=== PATIENT | male | born 1970 | race Caucasian/White ===

== ENCOUNTER 2024-12-31 04:46 | Emergency (ER) | payer BC, SELFPAY ==
[2024-12-31 04:48] VITALS: BP 118/90; PULSE 116; RESP 19; TEMP 36.8; O2SAT 92
[2024-12-31 04:50] VITALS: BMI 21.9
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
[2024-12-31 05:13] LABS: Basophils # (Auto) 0.0 Thou/mm3 (0.0-0.2); Basophils % (Auto) 1 % (0-2.5); Eosinophils # (Auto) 0.1 Thou/mm3 (0.0-0.5); Eosinophils % (Auto) 1 % (0-10); Hematocrit 45.1 % (41.0-53.0); Hemoglobin 15.4 g/dL (13.5-16.0); Immature Granulocytes Auto 0.02 Thou/mm3 (0.00-0.00); Lymphocytes # (Auto) 4.4 Thou/mm3 (1.0-4.8); Lymphocytes % (Auto) 51 % (10-50); Mean Corpuscular HGB Conc 34.1 g/dl (31.0-37.0); Mean Corpuscular Hemoglobin 34.1 pg (25.0-35.0); Mean Corpuscular Volume 100 fL (80-100); Monocytes # (Auto) 0.7 Thou/mm3 (0.0-0.8); Monocytes % (Auto) 8 % (0-12); Neutrophils # (Auto) 3.3 Thou/mm3 (1.8-7.7); Neutrophils % (Auto) 39 % (37-80); Nucleated Red Blood Cell # 0.00 Thou/mm3 (0.00-0.00); Nucleated Red Blood Cell % 0 /100 WBC (0); Platelet Count 136 Thou/mm3 (140-440); RDW Standard Deviation 53.0 fL (35.1-43.9); Red Blood Count 4.51 Miln/mm3 (4.50-5.90); White Blood Count 8.5 Thou/mm3 (3.8-10.6)
[2024-12-31 05:31] LABS: INR 0.9 (0.9-1.3); Partial Thromboplastin Time 28.4 Seconds (22.0-36.0); Prothrombin Time 10.2 Seconds (9.0-12.2)
[2024-12-31 05:42] LABS: Acetaminophen < 2.0 mcg/mL (10.0-20.0); Alanine Aminotransferase 21 U/L (10-49); Albumin, Serum 4.2 gm/dL (3.5-5.0); Albumin/Globulin Ratio 1.2 (1.2-2.2); Alkaline Phosphatase 239 U/L (46-116); Amylase 149 U/L (30-118); Anion Gap 15 (7-16); Aspartate Amino Transferase 61 U/L (0-34); BUN/Creatinine Ratio 9 Ratio (12-20); Bilirubin,Direct 0.2 mg/dL (0.0-0.3); Bilirubin,Total 0.5 mg/dL (0.3-1.2); Blood Urea Nitrogen 8 mg/dL (9-23); Calcium 8.9 mg/dL (8.3-10.6); Calcium (Corrected) 8.9 mg/dL (8.5-10.1); Carbon Dioxide 22.5 mMol/L (20.0-31.0); Chloride 101 mMol/L (98-107); Creatinine (Component) 0.9 mg/dL (0.6-1.3); Estimated Creatinine Clearance 114.4 mL/min (>60); Free T4 (Free Thyroxine) 1.17 ng/dL (0.89-1.76); Globulin 3.5 gm/dL (2.3-3.5); Glucose 112 mg/dL (74-106); Lipase 70 U/L (12-53); Magnesium 2.1 mg/dL (1.6-2.6); Osmolality,Calculated 274 (275-295); Potassium 3.6 mMol/L (3.4-5.1); Salicylate < 3.0 mg/dL; Sodium 138 mMol/L (136-145); Thyroid Stimulating Hormone 2.31 uIU/mL (0.55-4.78); Total Protein 7.7 gm/dL (5.7-8.2); eGFR > 60 See Note
[2024-12-31 05:46] LABS: Alcohol, Blood Medical 422.6 mg/dL (0-10.0)
[2024-12-31 06:14] VITALS: BP 128/88; PULSE 92; RESP 17; TEMP 36.5; O2SAT 90
[2024-12-31] MEDS: DIPHTH,PERTUSS(ACELL),TET VAC 0.5 ML SYR- ADULT IMi (06:41)
--- NOTE | 2024-12-31 06:54 | PD.EDADDENDU ---
Emergency Room Addendum Addendum Narrative: 0600: Care assumed from Dr. Guthrie, the previous shift emergency physician. Past medical, surgical, social and family history reviewed. Vitals and home medications reviewed. I will assume the care of the patient at this time, pending labs for medical clearance for mental health evaluation. Please refer to the emergency department record for history and examination from initial visit.?The following addendum documentation note is intended to reflect any pending information, findings, or radiology results not included in the patient?s initial chart. Blood alcohol 422.6. Urine drug screen negative. Through ED course, patient has remained stable. The patient had access and provided food and water. 1800: Patient signed out to Dr. Guthrie pending medical clearance for mental health evaluation.
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
[2024-12-31 07:53] VITALS: BP 145/84; PULSE 88; RESP 16; TEMP 37; O2SAT 97
[2024-12-31] MEDS: BACITRACIN OINT 1 GM PACKET TOP (08:35)
[2024-12-31 11:08] VITALS: BP 122/74; PULSE 93; RESP 18; TEMP 36.3; O2SAT 96
--- NOTE | 2024-12-31 13:26 | PC.NURSE ---
SPOKE TO JESSE, PT'S MOTHER, AND UPDATED REGARDING PT'S POC WITH PT'S CONSENT.
[2024-12-31 13:35] VITALS: BP 144/87; PULSE 110; RESP 18; TEMP 36.7; O2SAT 96
[2024-12-31 15:42] VITALS: BP 137/76; PULSE 84; RESP 18; TEMP 36.6; O2SAT 96
[2024-12-31 16:46] LABS: Amphetamine/Methamp Scrn,U Negative (Negative); Barbiturate Screen,Urine Negative (Negative); Benzodiazepines Screen,Urine Negative (Negative); Benzoylecgonine Screen, Ur Negative (Negative); Fentanyl Screen,Urine Negative (Negative); Opiate Screen,Urine Negative (Negative); THC Screen,Urine Negative (Negative)
--- NOTE | 2024-12-31 18:11 | PD.EDADDENDU ---
Emergency Room Addendum <Mer Russo - Last Filed: 01/01/25 01:20> Addendum Narrative: I took over the care from previous shift physician, Dr. Kenyon, at 6 PM on 12/31/24. See previous notes for complete H & P and ED course. Pending psychiatric placement. The patient remained stable during my watch. At 6 AM on 01/01/2025, the care of the patient was transferred to Dr. Kenyon. Jalil Guthrie MD <Jalil Guthrie MD - Last Filed: 01/01/25 02:02> Addendum Narrative: I took over the care from previous shift physician, Dr. Kenyon, at 6 PM on 12/31/24. See previous notes for complete H & P and ED course. Pending psychiatric placement. At 6 AM on 01/01/2025, the care of the patient was transferred to Dr. Kenyon. The patient remained stable during my watch. Jalil Guthrie MD
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
[2025-01-01] VITALS (7 sets, daily range): BP systolic 128–169; BP diastolic 84–103; PULSE 90–101; RESP 17–18; TEMP 36.9–37.1; O2SAT 97–99
--- NOTE | 2025-01-01 06:30 | EDNOTE_ITS ---
Emergency Room Addendum Addendum Narrative: 0600: Care assumed from Dr. Guthrie, the previous shift emergency physician. Past medical, surgical, social and family history reviewed. Vitals and home medications reviewed. I will assume the care of the patient at this time, pending LPS facility placement. Please refer to the emergency department record for history and examination from initial visit.?The following addendum documentation note is intended to reflect any pending information, findings, or radiology results not included in the patient?s initial chart. Made aware by RN that the patients blood pressure is 154/100. States the patient takes 10mg Lisinopril at home and last took it 5 days ago. Lisinopril has been ordered. Patient has been accepted at [facility] by Dr. Zhang. Patients blood pressure remains elevated after 10mg Lisinopril, 169/100, HR 95. Ordered 0.2mg Clonidine. 1330: EMS here to transfer patient. Blood pressure improved, 128/84.
[2025-01-01 06:41] LABS: Alcohol, Blood Medical < 3.0 mg/dL (0-10.0)
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
--- NOTE | 2025-01-01 11:01 | PC.NURSE ---
Spoke to Joyce from [facility] by Dr. Zhang. Patient to go to unit 4 at 1300.
== END 2025-01-01 13:30 ==
PROVIDERS: Emergency Provider Emergency Medicine; PCP Family Medicine
DX: Z04.6 Encounter for general psychiatric examination, requested by authority (principal); S20.319A Abrasion of unspecified front wall of thorax, initial encounter; R45.850 Homicidal ideations; X78.8XXA Intentional self-harm by other sharp object, initial encounter; Z75.1 Person awaiting admission to adequate facility elsewhere; Z23 Encounter for immunization
CPT/HCPCS: 36415; 80053; 80307; 80320; 80329; 82150; 82248; 83690; 83735; 84439; 84443; 85025; 85610; 85730; 90471; 90715; 96127; 99282; A9270; G0480

== ENCOUNTER 2025-02-04 14:23 | Emergency (ER) | payer BC, SELFPAY ==
[2025-02-04 14:30] VITALS: BP 145/100; PULSE 100; RESP 18; TEMP 36.8; O2SAT 95
--- NOTE | 2025-02-04 14:34 | XR_ITS ---
Examination: Right hand 2 views TECHNIQUE: AP lateral right hand 2 views Date and time: February 04, 2025 1438 hours INDICATIONS: Injury to the hand today with pain. FINDINGS: Old healed fracture fifth metacarpal Old appearing fracture at the base of the distal phalanx index finger No acute fracture No foreign body IMPRESSION: No acute fracture
--- NOTE | 2025-02-04 14:34 | XR_ITS ---
Examination: Right wrist 2 views Technique one AP lateral right wrist 2 views Date and time: February 04, 2025 1441 hours INDICATIONS: Injured the wrist today, wrist pain. FINDINGS: Old fracture base fifth metacarpal No acute fracture No dislocation IMPRESSION: No acute fracture
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
[2025-02-04] MEDS: IBUPROFEN TAB 400 MG TABLET 800 MG PO (15:27)
--- NOTE | 2025-02-04 15:31 | PC.NURSE ---
eddie wrap applied to pts right hand
== END 2025-02-04 15:33 | disposition home or self-care (01) ==
PROVIDERS: Emergency Provider Emergency Medicine; PCP Family Medicine
DX: S63.501A Unspecified sprain of right wrist, initial encounter (principal); S63.91XA Sprain of unspecified part of right wrist and hand, initial encounter; S60.419A Abrasion of unspecified finger, initial encounter; X58.XXXA Exposure to other specified factors, initial encounter
CPT/HCPCS: 73100; 73120; 99283; A9270

== ENCOUNTER → 2025-03-04 | Outpatient (CLI) | payer BC, SELFPAY ==
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
--- NOTE | 2025-03-04 09:15 | XR_ITS ---
Examination: Cervical spine 3 views TECHNIQUE: AP lateral coned AP odontoid cervical spine 3 views Date and time: March 04, 2025, 0922 hours INDICATIONS: Neck pain beginning 3 months ago FINDINGS: Adequate alignment cervical vertebral bodies Moderate osteopenia. No cervical fracture. Advanced degenerative disc disease C5-C6 with posterior osteophyte formation Intact odontoid IMPRESSION: Advanced degenerative disc disease C5-C6
[2025-03-04 10:02] LABS: Collection Type, Urine Clean Catch; Squamous Epithelial Cell,Urine 0 /hpf (0-5)
[2025-03-04 10:37] LABS: Basophils # (Auto) 0.0 Thou/mm3 (0.0-0.2); Basophils % (Auto) 0 % (0-2.5); Eosinophils # (Auto) 0.1 Thou/mm3 (0.0-0.5); Eosinophils % (Auto) 1 % (0-10); Hematocrit 48.8 % (41.0-53.0); Hemoglobin 16.5 g/dL (13.5-16.0); Immature Granulocytes Auto 0.02 Thou/mm3 (0.00-0.00); Lymphocytes # (Auto) 2.4 Thou/mm3 (1.0-4.8); Lymphocytes % (Auto) 32 % (10-50); Mean Corpuscular HGB Conc 33.8 g/dl (31.0-37.0); Mean Corpuscular Hemoglobin 34.3 pg (25.0-35.0); Mean Corpuscular Volume 102 fL (80-100); Monocytes # (Auto) 0.8 Thou/mm3 (0.0-0.8); Monocytes % (Auto) 11 % (0-12); Neutrophils # (Auto) 4.0 Thou/mm3 (1.8-7.7); Neutrophils % (Auto) 55 % (37-80); Nucleated Red Blood Cell # 0.00 Thou/mm3 (0.00-0.00); Nucleated Red Blood Cell % 0 /100 WBC (0); Platelet Count 287 Thou/mm3 (140-440); RDW Standard Deviation 48.2 fL (35.1-43.9); Red Blood Count 4.81 Miln/mm3 (4.50-5.90); White Blood Count 7.3 Thou/mm3 (3.8-10.6)
[2025-03-04 10:41] LABS: Bilirubin,Urine Negative (Negative); Blood,Urine Negative (Negative); Clarity,Urine Clear (Clear/Hazy); Color,Urine Lt-Yellow (Lt Yel-Yel); Glucose, Urine Negative (Negative); Ketones,Urine Negative (Negative); Leukocyte Esterase,Urine Negative (Negative); Nitrite,Urine Negative (Negative); PH,Urine 6.0 (5.0-7.0); Protein,Urine Negative (Neg - Trace); RBC,Urine < 1 /hpf (0-3); Specific Gravity,Urine 1.014 (1.001-1.035); Urobilinogen,Urine Negative mg/dL (0.0-1.0); WBC,Urine 1 /hpf (0-5)
[2025-03-04 10:44] LABS: Alanine Aminotransferase 18 U/L (10-49); Albumin, Serum 4.8 gm/dL (3.5-5.0); Albumin/Globulin Ratio 1.4 (1.2-2.2); Alkaline Phosphatase 169 U/L (46-116); Anion Gap 9 (7-16); Aspartate Amino Transferase 22 U/L (0-34); BUN/Creatinine Ratio 6 Ratio (12-20); Bilirubin,Total 0.8 mg/dL (0.3-1.2); Blood Urea Nitrogen 7 mg/dL (9-23); Calcium 9.7 mg/dL (8.3-10.6); Calcium (Corrected) 9.7 mg/dL (8.5-10.1); Carbon Dioxide 29.2 mMol/L (20.0-31.0); Cardiac Risk Estimate 3.4 RATIO (4.0-6.7); Chloride 101 mMol/L (98-107); Cholesterol 224 mg/dL (132-200); Creatinine (Component) 1.2 mg/dL (0.6-1.3); Free T3 3.7 pg/mL (2.3-4.2); Free T4 (Free Thyroxine) 1.19 ng/dL (0.89-1.76); Globulin 3.4 gm/dL (2.3-3.5); Glucose 116 mg/dL (74-106); HDL Cholesterol 66 mg/dL (40-60); LDL Cholesterol,Calculated 131 mg/dL (0-130); Osmolality,Calculated 276 (275-295); Potassium 4.6 mMol/L (3.4-5.1); Sodium 139 mMol/L (136-145); Thyroid Stimulating Hormone 1.39 uIU/mL (0.55-4.78); Total Protein 8.2 gm/dL (5.7-8.2); Triglycerides 137 mg/dL (30-150); eGFR > 60 See Note
[2025-03-04 10:51] LABS: Glucose Estimated Average 103 mg/dL (80-131); Hemoglobin A1C 5.2 % Hgb (4.8-6.0)
[2025-03-04 11:15] LABS: Folate 19.22 ng/mL (>5.38); Hepatitis C Antibody Non Reactive (Non React); Vitamin B12 238 pg/mL (211-911); Vitamin D 25 Hydroxy Total 42.4 ng/mL (7.3-40.2)
[2025-03-04 11:39] LABS: Syphilis Nonreactive (Nonreactive)
[2025-03-04 12:29] LABS: HIV (1&2) Antibody Rapid Non-Reactive
[2025-03-04 13:41] LABS: Chlamydia trachomatis PCR Negative (Not Detect); Neisseria Gonorrhoeae DNA PCR Negative (Not Detect); Trichomonas Negative (Negative)
[2025-03-18 06:40] LABS: Estradiol, Ultrasensitive* 32 pg/mL (< OR = 29); Testosterone, Free,Dialysis 45.7 pg/mL (35.0-155.0); Testosterone, Total, Dialysis 553 ng/dL (250-1100)
== END | disposition home or self-care (01) ==
LOC: CDIM 09:31 → COPL 09:37
PROVIDERS: PCP Nurse Practitioner; Referring Provider Nurse Practitioner; Visit Provider Radiology Diagnostic Radiology
DX: M50.322 Other cervical disc degeneration at C5-C6 level (principal); M51.369 Other intervertebral disc degeneration, lumbar region without mention of lumbar back pain or lower extremity pain; R53.83 Other fatigue; Z13.1 Encounter for screening for diabetes mellitus; Z13.220 Encounter for screening for lipoid disorders; Z11.3 Encounter for screening for infections with a predominantly sexual mode of transmission
CPT/HCPCS: 36415; 72040; 72100; 80053; 80061; 81001; 82306; 82607; 82670; 82746; 83036; 84402; 84403; 84439; 84443; 84481; 85025; 86703; 86780; 86803; 87491; 87591; 87661